=== PATIENT | female | born 1950 | race Caucasian/White ===

== ENCOUNTER 2022-03-06 08:36 | Day surgery (SDC) | payer OTHER ==
[~2022-03-06] VITALS: Ht 162.6 cm; Wt 59.2 kg
[~2022-03-06 08:36] MED LIST: HYDACE5 PO; LEVSOD75 PO; Multiple Vitam1 EAC1 PO; ONDA4ODT MM; [UNRECOGNIZED DRUG - OTHER] PO
--- NOTE | 2022-03-06 09:44 | NUR ---
03/06/22 0943 Dominga Rosa PT UP TO BATHROOM WITH ASSISTANCE PRIOR TO COLONOSCOPY. WARM BLANKET APPLIED TO PATIENT. BED IN LOW, LOCKED POSITION, CALL LIGHT IN REACH.
== END 2022-03-06 11:05 | disposition home or self-care (01) ==
LOC: ORSCSDS 08:36
PROVIDERS: Internal Medicine Gastroenterology
PROC: 0DBK8ZX Excision of Ascending Colon, Via Natural or Artificial Opening Endoscopic, Diagnostic (ICD-10-PCS; principal; 2022-03-06 10:00)
DX: Z12.11 Encounter for screening for malignant neoplasm of colon (principal); Z86.010 Personal history of colon polyps; Z80.0 Family history of malignant neoplasm of digestive organs; D12.2 Benign neoplasm of ascending colon; K57.30 Diverticulosis of large intestine without perforation or abscess without bleeding; K64.8 Other hemorrhoids; E03.9 Hypothyroidism, unspecified; E78.5 Hyperlipidemia, unspecified; Z79.899 Other long term (current) drug therapy
CPT/HCPCS: 88305; J2704; J7120